=== PATIENT | male | born 1980 | race Two or more races ===

== ENCOUNTER 2023-12-31 11:23 | Emergency (ER) | payer BC, OTHER ==
[~2023-12-31] VITALS: Ht 172.7 cm; Wt 82.3 kg
[2023-12-31 12:44] LABS: Urine Bacteria FEW /hpf (None Seen); Urine Blood Negative /uL (Negative); Urine Clarity HAZY (Clear); Urine Color Colorless (Yellow); Urine Protein, UAD TRACE (Negative); Urine Specific Gravity 1.016 (1.001-1.035); Urine Urobilinogen Normal (Negative); Urine WBC 144 /hpf (0 - 3); Urine pH 6.5 (5.0-8.0)
[2023-12-31] MEDS ORDERED: CIPR-173 PO (13:25)
[2023-12-31] MEDS ORDERED: PHEN-922 PO (13:25)
[2023-12-31 13:30] VITALS: BP 139/75; PULSE 84; RESP 16; TEMP 97.8; O2SAT 97
[2023-12-31] MEDS: cefTRIAXone SOD 1,000 MG VL IM ONE (13:48)
== END 2023-12-31 13:58 | disposition home or self-care (01) ==
LOC: ER 11:23
DX: N39.0 Urinary tract infection, site not specified (principal); Z79.899 Other long term (current) drug therapy
CPT/HCPCS: 81001; 96372; 99283; J0696

== ENCOUNTER 2024-04-03 23:34 | Inpatient (IN) | payer BC, OTHER ==
[~2024-04-03] VITALS: Ht 172.7 cm; Wt 85.2 kg
[~2024-04-03 23:34] MED LIST: CIPR-173 PO; PHEN-922 PO
[2024-04-04 02:12] LABS: Basophils # (auto) 0.1 10 ^3/uL (0-0.2); Basophils % (auto) 0.5 % (0.0-2.0); Eosinophils # (auto) 0.3 10 ^3/uL (0-0.8); Eosinophils % (auto) 1.9 % (0.0-7.0); Hematocrit 40.7 % (41.0-53.0); Hemoglobin 13.5 g/dL (13.5-17.5); Lymphocytes # (auto) 1.6 10 ^3/uL (0.4-5.4); Lymphocytes % (auto) 11.4 % (10.0-50.0); Mean Corpuscular Hemoglobin 29.3 pg (28.0-32.0); Mean Corpuscular Hgb Conc. 33.2 g/dL (32.0-36.0); Mean Corpuscular Volume 88.3 fL (80.0-100.0); Monocytes # (auto) 1.1 10 ^3/uL (0-1.3); Monocytes % (auto) 7.9 % (0.0-12.0); Neutrophils # (auto) 11.2 10 ^3/uL (1.6-8.6); Neutrophils % (auto) 78.3 % (37.0-80.0); Red Blood Cells 4.61 10^6/uL (4.5-5.90); Red Cell Distribution Width 13.3 % (11.8-14.3); White Blood Cell 14.4 10^3/uL (4.4-10.8)
[2024-04-04 02:26] LABS: Chloride 105 mmol/L (98-107); Potassium 4.1 mmol/L (3.5-5.1); Sodium 140 mmol/L (136-145)
[2024-04-04 02:27] LABS: Anion Gap 8 (5-15); Calcium 9.8 mg/dL (8.7-10.4); Carbon Dioxide 27 mmol/L (20-30)
[2024-04-04 02:31] LABS: Prothrombin Time 10.6 sec (9.3-11.8)
[2024-04-04 02:32] LABS: BUN/Creatinine Ratio 16.7 (10.0-20.0); Blood Urea Nitrogen 17 mg/dL (9-23); Glucose 120 mg/dL (74-106)
[2024-04-04] MEDS ORDERED: HYDROcodone-ACET 5/325MG TAB PO PRN (03:30)
[2024-04-04] MEDS ORDERED: DOCUSATE SOD 100 MG CAP PO PRN (03:30)
[2024-04-04] MEDS ORDERED: NITROGLYCERIN 0.4 MG SL TAB SL PRN (03:30)
[2024-04-04] MEDS ORDERED: ONDANSETRON HCL 4 MG/2 ML VIAL IV PRN (03:30)
[2024-04-04] MEDS ORDERED: MORPHINE SULFATE INJ 2 MG/ml SYRG IV PRN (03:30)
[2024-04-04] MEDS ORDERED: ACETAMINOPHEN 325 MG TAB PO PRN (03:30)
[2024-04-04 04:06] LABS: Basophils # (auto) 0 10 ^3/uL (0-0.2); Basophils % (auto) 0.3 % (0.0-2.0); Eosinophils # (auto) 0.3 10 ^3/uL (0-0.8); Eosinophils % (auto) 2.5 % (0.0-7.0); Hematocrit 38.2 % (41.0-53.0); Hemoglobin 12.7 g/dL (13.5-17.5); Lymphocytes # (auto) 1.9 10 ^3/uL (0.4-5.4); Lymphocytes % (auto) 13.8 % (10.0-50.0); Mean Corpuscular Hemoglobin 29.4 pg (28.0-32.0); Mean Corpuscular Hgb Conc. 33.1 g/dL (32.0-36.0); Mean Corpuscular Volume 88.8 fL (80.0-100.0); Neutrophils # (auto) 10.4 10 ^3/uL (1.6-8.6); Neutrophils % (auto) 76.4 % (37.0-80.0); Nucleated Red Blood Cells % 0.1 %; Red Cell Distribution Width 13.6 % (11.8-14.3); White Blood Cell 13.7 10^3/uL (4.4-10.8)
[2024-04-04] MEDS: cefTRIAXone 1GM/50ML D5W 50 ML IV ONE (04:34)
[2024-04-04] MEDS: SODIUM CHLOR 0.9% PF (SALINE LOCK) 10ML VIAL/SYR IV SCH (06:00)
[2024-04-04 12:39] VITALS: BP 128/75; PULSE 62; RESP 12; TEMP 98; O2SAT 95
[2024-04-04 12:45] VITALS: PULSE 67; RESP 16; O2SAT 100
[2024-04-04] MEDS: CIPROFLOXACIN HCL 500 MG TAB PO ONE (16:48)
[2024-04-04 17:00] VITALS: BP 120/78; PULSE 67; RESP 16; TEMP 98.2; O2SAT 100
[2024-04-04] MEDS: TAMSULOSIN HYDROCHLORIDE 0.4 MG CAP PO SCH (18:05)
[2024-04-04 20:00] VITALS: BP 100/64; PULSE 78; RESP 18; TEMP 98.3; O2SAT 98
[2024-04-04 21:00] VITALS: BP 100/64; PULSE 78; RESP 18; TEMP 98.3; O2SAT 98
[2024-04-04] MEDS: CIPROFLOXACIN HCL 500 MG TAB PO SCH (22:35)
[2024-04-05] VITALS (8 sets, daily range): BP systolic 103–121; BP diastolic 65–74; PULSE 65–88; RESP 16–20; TEMP 97.5–98.3; O2SAT 94–99
[2024-04-05] MEDS ORDERED: cefTRIAXone 1GM/50ML D5W 50 ML IV SCH (04:00)
[2024-04-05 07:08] LABS: Basophils # (auto) 0.1 10 ^3/uL (0-0.2); Basophils % (auto) 0.7 % (0.0-2.0); Eosinophils # (auto) 0.3 10 ^3/uL (0-0.8); Eosinophils % (auto) 4.4 % (0.0-7.0); Hematocrit 35.9 % (41.0-53.0); Hemoglobin 11.9 g/dL (13.5-17.5); Lymphocytes # (auto) 2.5 10 ^3/uL (0.4-5.4); Lymphocytes % (auto) 34.2 % (10.0-50.0); Mean Corpuscular Hemoglobin 29.6 pg (28.0-32.0); Mean Corpuscular Hgb Conc. 33.1 g/dL (32.0-36.0); Mean Corpuscular Volume 89.2 fL (80.0-100.0); Monocytes # (auto) 0.6 10 ^3/uL (0-1.3); Monocytes % (auto) 8.7 % (0.0-12.0); Neutrophils # (auto) 3.9 10 ^3/uL (1.6-8.6); Red Blood Cells 4.02 10^6/uL (4.5-5.90); Red Cell Distribution Width 13.3 % (11.8-14.3); White Blood Cell 7.4 10^3/uL (4.4-10.8)
[2024-04-05 07:26] LABS: Alanine Aminotransferase 10 U/L (7-40); Albumin 3.9 g/dL (3.2-4.8); Alkaline Phosphatase 102 U/L (46-116); Anion Gap 3 (5-15); Aspartate Aminotransferase 10 U/L (13-40); BUN/Creatinine Ratio 15.6 (10.0-20.0); Blood Urea Nitrogen 15 mg/dL (9-23); Calcium 9.2 mg/dL (8.5-10.1); Carbon Dioxide 31 mmol/L (20-30); Chloride 106 mmol/L (98-107); Glucose 104 mg/dL (74-106); Potassium 3.8 mmol/L (3.5-5.1); Sodium 140 mmol/L (136-145)
[2024-04-05 07:27] LABS: Bilirubin, Total 0.4 mg/dL (0.2-1.0); Total Protein 6.4 g/dL (5.7-8.2)
[2024-04-05 08:57] LABS: Magnesium 1.9 mg/dL (1.6-2.6)
[2024-04-05 08:59] LABS: Phosphorus 3.4 mg/dL (2.4-5.1)
[2024-04-05] MEDS: ERGOCALCIFEROL 50,000 UNIT(1.25MG) CAP PO SCH (17:20)
[2024-04-06] VITALS (7 sets, daily range): BP systolic 106–151; BP diastolic 58–84; PULSE 63–84; RESP 16–22; TEMP 97.7–98; O2SAT 94–100
[2024-04-06 06:26] LABS: Basophils # (auto) 0.1 10 ^3/uL (0-0.2); Eosinophils # (auto) 0.3 10 ^3/uL (0-0.8); Eosinophils % (auto) 4.3 % (0.0-7.0); Hematocrit 33.3 % (41.0-53.0); Hemoglobin 11.1 g/dL (13.5-17.5); Lymphocytes # (auto) 2.1 10 ^3/uL (0.4-5.4); Lymphocytes % (auto) 33.1 % (10.0-50.0); Mean Corpuscular Hemoglobin 29.6 pg (28.0-32.0); Mean Corpuscular Hgb Conc. 33.2 g/dL (32.0-36.0); Mean Corpuscular Volume 89.3 fL (80.0-100.0); Monocytes # (auto) 0.5 10 ^3/uL (0-1.3); Neutrophils # (auto) 3.5 10 ^3/uL (1.6-8.6); Neutrophils % (auto) 54.6 % (37.0-80.0); Nucleated Red Blood Cells % 0.1 %; Red Blood Cells 3.73 10^6/uL (4.5-5.90); Red Cell Distribution Width 13.2 % (11.8-14.3); White Blood Cell 6.5 10^3/uL (4.4-10.8)
[2024-04-06 06:36] LABS: INR 0.98 (0.9-1.15); Partial Thromboplastin Time 25.1 SEC (24.5-34.5); Prothrombin Time 10.4 sec (9.3-11.8)
[2024-04-06 06:38] LABS: Alanine Aminotransferase 13 U/L (7-40); Albumin 3.5 g/dL (3.2-4.8); Alkaline Phosphatase 90 U/L (46-116); Anion Gap 6 (5-15); Aspartate Aminotransferase 11 U/L (13-40); Blood Urea Nitrogen 15 mg/dL (9-23); Calcium 9.3 mg/dL (8.7-10.4); Carbon Dioxide 29 mmol/L (20-30); Chloride 105 mmol/L (98-107); Glucose 98 mg/dL (74-106); Potassium 4.2 mmol/L (3.5-5.1); Sodium 140 mmol/L (136-145)
[2024-04-06 06:39] LABS: Bilirubin, Total < 0.2 mg/dL (0.2-1.0); Total Protein 5.7 g/dL (5.7-8.2)
[2024-04-07] VITALS (8 sets, daily range): BP systolic 111–139; BP diastolic 61–94; PULSE 60–78; RESP 7–22; TEMP 97.5–98.2; O2SAT 95–100
[2024-04-07 06:58] LABS: Basophils # (auto) 0.1 10 ^3/uL (0-0.2); Basophils % (auto) 0.7 % (0.0-2.0); Eosinophils # (auto) 0.3 10 ^3/uL (0-0.8); Eosinophils % (auto) 3.5 % (0.0-7.0); Hematocrit 31.4 % (41.0-53.0); Hemoglobin 10.4 g/dL (13.5-17.5); Lymphocytes # (auto) 2.3 10 ^3/uL (0.4-5.4); Lymphocytes % (auto) 32.6 % (10.0-50.0); Mean Corpuscular Hemoglobin 29.2 pg (28.0-32.0); Mean Corpuscular Volume 88.5 fL (80.0-100.0); Monocytes # (auto) 0.6 10 ^3/uL (0-1.3); Monocytes % (auto) 8.5 % (0.0-12.0); Neutrophils # (auto) 3.9 10 ^3/uL (1.6-8.6); Neutrophils % (auto) 54.7 % (37.0-80.0); Red Blood Cells 3.55 10^6/uL (4.5-5.90); Red Cell Distribution Width 13.1 % (11.8-14.3); White Blood Cell 7.1 10^3/uL (4.4-10.8)
[2024-04-07 07:02] LABS: INR 1.03 (0.9-1.15); Partial Thromboplastin Time 25.4 SEC (24.5-34.5); Prothrombin Time 10.9 sec (9.3-11.8)
[2024-04-07 07:16] LABS: Alanine Aminotransferase 10 U/L (7-40); Albumin 3.8 g/dL (3.2-4.8); Alkaline Phosphatase 89 U/L (46-116); Anion Gap 5 (5-15); Aspartate Aminotransferase 11 U/L (13-40); Blood Urea Nitrogen 12 mg/dL (9-23); Carbon Dioxide 29 mmol/L (20-30); Chloride 106 mmol/L (98-107); Glucose 93 mg/dL (74-106); Potassium 3.8 mmol/L (3.5-5.1); Sodium 140 mmol/L (136-145)
[2024-04-07 07:17] LABS: Bilirubin, Total 0.3 mg/dL (0.2-1.0); Total Protein 6.1 g/dL (5.7-8.2)
[2024-04-07] MEDS ORDERED: PROPOFOL 10 MG/ML 20 ML IV ONE (14:23)
[2024-04-07] MEDS ORDERED: fentaNYL CITRATE 100 MCG/2 ML VL ONE (14:23)
[2024-04-07] MEDS ORDERED: ONDANSETRON HCL 4 MG/2 ML VIAL ONE (16:43)
[2024-04-07] MEDS ORDERED: MEPERIDINE HCL (50 MG/ML) 1 ML VIAL ONE ×2 (16:57→17:30)
[2024-04-07] MEDS ORDERED: MEPERIDINE HCL (25 MG/ML) 1ML VIAL IV PRN (19:45)
[2024-04-07] MEDS ORDERED: HYDROmorphone HCL 2 MG/ML VL/or syr IV PRN (19:45)
[2024-04-07] MEDS: ONDANSETRON HCL 4 MG/2 ML VIAL IV ONE (20:41)
[2024-04-08 01:00] VITALS: BP 129/77; PULSE 67; RESP 22; TEMP 98.1; O2SAT 98
[2024-04-08 05:00] VITALS: BP 111/63; PULSE 22; TEMP 98.4; O2SAT 95
[2024-04-08 07:00] LABS: Basophils # (auto) 0.1 10 ^3/uL (0-0.2); Basophils % (auto) 0.8 % (0.0-2.0); Eosinophils # (auto) 0.2 10 ^3/uL (0-0.8); Eosinophils % (auto) 1.4 % (0.0-7.0); Hematocrit 30.8 % (41.0-53.0); Hemoglobin 10.3 g/dL (13.5-17.5); Lymphocytes # (auto) 2.2 10 ^3/uL (0.4-5.4); Lymphocytes % (auto) 19.9 % (10.0-50.0); Mean Corpuscular Hemoglobin 29.8 pg (28.0-32.0); Mean Corpuscular Hgb Conc. 33.4 g/dL (32.0-36.0); Mean Corpuscular Volume 89.3 fL (80.0-100.0); Monocytes # (auto) 0.8 10 ^3/uL (0-1.3); Monocytes % (auto) 7.5 % (0.0-12.0); Neutrophils # (auto) 7.7 10 ^3/uL (1.6-8.6); Neutrophils % (auto) 70.4 % (37.0-80.0); Red Blood Cells 3.45 10^6/uL (4.5-5.90); Red Cell Distribution Width 13.1 % (11.8-14.3); White Blood Cell 10.9 10^3/uL (4.4-10.8)
[2024-04-08 07:18] LABS: Alanine Aminotransferase < 9 U/L (7-40); Albumin 3.6 g/dL (3.2-4.8); Alkaline Phosphatase 87 U/L (46-116); Anion Gap 4 (5-15); Aspartate Aminotransferase 14 U/L (13-40); BUN/Creatinine Ratio 13.4 (10.0-20.0); Blood Urea Nitrogen 11 mg/dL (9-23); Calcium 8.7 mg/dL (8.5-10.1); Carbon Dioxide 30 mmol/L (20-30); Chloride 105 mmol/L (98-107); Glucose 83 mg/dL (74-106); Potassium 3.8 mmol/L (3.5-5.1); Sodium 139 mmol/L (136-145)
[2024-04-08 07:19] LABS: Bilirubin, Total 0.3 mg/dL (0.2-1.0); Total Protein 5.8 g/dL (5.7-8.2)
[2024-04-08 08:00] VITALS: BP 129/61; PULSE 67; RESP 16; RESP 18; TEMP 98.5; O2SAT 97
[2024-04-08] MEDS ORDERED: ACET-1882 PO (10:49)
[2024-04-08] MEDS ORDERED: TAMS-35 PO (10:49)
[2024-04-08] MEDS ORDERED: ERGO1CAP23 PO (10:49)
[2024-04-08] MEDS ORDERED: DOCU-265 PO (10:49)
[2024-04-08 12:00] VITALS: BP 110/70; PULSE 76; RESP 16; TEMP 98.7; O2SAT 98
== END 2024-04-08 14:00 | disposition home or self-care (01) | DRG 669 ==
LOC: ER 23:34 → OVERFLOW 04-04 03:24 → EAST 04-04 11:32
PROVIDERS: ADMIT Internal Medicine Pulmonary Disease; ATTEND Emergency Medicine
PROC: 0TBC8ZZ Excision of Bladder Neck, Via Natural or Artificial Opening Endoscopic (ICD-10-PCS; 2024-04-07)
PROC: 0TCC8ZZ Extirpation of Matter from Bladder Neck, Via Natural or Artificial Opening Endoscopic (ICD-10-PCS; principal; 2024-04-07 16:29)
DX: N31.9 Neuromuscular dysfunction of bladder, unspecified (principal); N13.6 Pyonephrosis; D49.4 Neoplasm of unspecified behavior of bladder; D72.829 Elevated white blood cell count, unspecified; R31.0 Gross hematuria; Z79.2 Long term (current) use of antibiotics; Z79.899 Other long term (current) drug therapy
CPT/HCPCS: 36415; 74176; 76775; 80048; 80053; 80061; 82306; 82360; 82607; 83690; 83735; 84100; 84443; 85025; 85610; 85730; 96360; G0378; J2405; J2704

== ENCOUNTER 2024-09-10 19:31 | Emergency (ER) | payer BC, OTHER ==
[~2024-09-10] VITALS: Ht 172.7 cm; Wt 86.3 kg
[~2024-09-10 19:31] MED LIST changes: +ACET-1882 PO; +DOCU-265 PO; +ERGO1CAP23 PO; -PHEN-922 PO; +TAMS-35 PO
[2024-09-10 19:38] VITALS: BP 112/78; PULSE 103; RESP 18; O2SAT 98
[2024-09-10] MEDS ORDERED: ONDANSETRON HCL 4 MG/2 ML VIAL IV ONE (21:30)
[2024-09-10] MEDS ORDERED: SODIUM CHLORIDE 0.9% 2,050 ML IV ONE (21:30)
[2024-09-10] MEDS ORDERED: cefTRIAXone 1GM/50ML D5W 50 ML IV ONE (21:30)
[2024-09-10] MEDS ORDERED: AZITHROMYCIN 500MG/ 250ML 250 ML IV ONE (21:30)
[2024-09-10] MEDS ORDERED: fentaNYL CITRATE 100 MCG/2 ML VL IV ONE (21:30)
== END 2024-09-10 22:33 | disposition left against medical advice (07) ==
LOC: ER 19:31
DX: N50.811 Right testicular pain (principal); N43.3 Hydrocele, unspecified; N45.3 Epididymo-orchitis; Z79.899 Other long term (current) drug therapy
CPT/HCPCS: 76870